=== PATIENT | female | born 1995 ===

== ENCOUNTER 2018-08-06 14:10 | Emergency (ER) | payer OTHER ==
[2018-08-06 15:15] VITALS: BP 105/67
--- NOTE | 2018-08-06 15:24 | UC ---
General HPI - HPI Summary HPI Summary: Patient presents to have the rabies vaccine series. Patient starting a new job ad needs rabies vaccine series, Patient's never had a problem with vaccines before. Patient never had rabies vaccine exposure. Patient is not ill. Patient has no food or medicatoin allergies. Patient healthy, no medical history and not currently sick. No Medications reviewed - History of Current Complaint Chief Complaint: UCGeneralIllness Stated Complaint: RABIES Time Seen by Provider: 08/06/18 15:19 Hx Last Menstrual Period: 07/09/2018 Pain Intensity: 0 - Allergy/Home Medications Allergies/Adverse Reactions: Allergies Allergy/AdvReac Type Severity Reaction Status Date / Time No Known Allergies Allergy Verified 08/06/18 15:16 PMH/Surg Hx/FS Hx/Imm Hx Previously Healthy: Yes - Surgical History Surgical History: None - Family History Known Family History: Positive: Non-Contributory - Social History Occupation: Student Lives: Dormitory/Roommates Alcohol Use: Occasionally Substance Use Type: None Smoking Status (MU): Never Smoked Tobacco Review of Systems All Other Systems Reviewed And Are Negative: Yes Constitutional: Positive: Negative Physical Exam - Summary Physical Exam Summary: Vital Signs Reviewed: Yes A+Ox3, no distress Eyes: Conjunctiva Clear, CARLOS. EOM intact and full ENT: Hearing grossly normal TM x 2 clear, mmoist, uvula midline, no exudate, no erythema Neck: Positive: Supple Respiratory: Positive: No respiratory distress, No accessory muscle use + CTA throughout no w/r Cardiovascular: RRR nl s1, s2 no m/r CBT <2 sec abd soft + BS nt/nd no guarding, no distension Musculoskeletal Exam: BENITEZ x 4 without difficulty Strength Intact, ROM Intact Neurological: Positive: Alert, + sensation throughout Psychological: Positive: Normal Response To Family Skin: Positive: no rash, no ecchymosis Triage Information Reviewed: Yes Vital Signs: Initial Vital Signs Temp 98.6 F 08/06/18 15:10 Pulse 68 08/06/18 15:10 Resp 16 08/06/18 15:10 BP 105/67 08/06/18 15:10 Pulse Ox 99 08/06/18 15:10 Course/Dx - Course Course Of Treatment: Pt starting job next month -needs rabies vaccine series No h/o allergic reactions ,no , not currently sick Will start series tonight advised motrin/apap as needed for discomfort at site - Diagnoses Provider Diagnosis: Rabies, need for prophylactic vaccination against Discharge - Sign-Out/Discharge Documenting (check all that apply): Patient Departure All imaging exams completed and their final reports reviewed: No Studies - Discharge Plan Condition: Stable Disposition: HOME Patient Education Materials: Rabies Vaccine (ED) Referrals: No Primary Care Phys,NOPCP [Primary Care Provider] - Additional Instructions: Preexposure vaccination: A total of 3 doses, 1 mL each, on days 0, 7, and 21 or 28. Today 08/06/18 = Day #0 Day #7 = 08/13/18 Day # 21 = 08/27/18 OR Day #8 = 09/03/18 Anticipate increased discomfort in the area of the vaccine over the next 2-3 days. This is normal. Okay to take ibuprofen (Motrin, Advil) or Tylenol as needed for discomfort If you have any concerns for a reaction, trouble breathing, swelling, hives or any other concerns it is recommended you go to the emergency department for further evaluation and treatment - Billing Disposition and Condition Condition: STABLE Disposition: Home
[2018-08-06] MEDS ORDERED: Rabies VIRUS VACCINE (Imovax)* 2.5 UNIT/ML 1 ML IM ONE (15:30)
== END 2018-08-06 15:55 | disposition home or self-care (01) ==
LOC: UCEAST 14:10
DX: Z23 Encounter for immunization (principal)
CPT/HCPCS: 90471; 99201; G0463

== ENCOUNTER 2018-08-13 13:39 | Emergency (ER) | payer OTHER ==
[2018-08-13] MEDS ORDERED: Rabies VIRUS VACCINE (Imovax)* 2.5 UNIT/ML 1 ML IM ONE (13:47)
[2018-08-13 13:50] VITALS: BP 107/73
--- NOTE | 2018-08-26 18:15 | UC ---
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 She has had no exposure. - History of Current Complaint Chief Complaint: UCGeneralIllness Stated Complaint: RABIES SHOT Time Seen by Provider: 08/13/18 13:43 Hx Obtained From: Patient Hx Last Menstrual Period: 07/09/2018 Onset/Duration: Other - No complaints Current Severity: None Pain Intensity: 0 - Allergy/Home Medications Allergies/Adverse Reactions: Allergies Allergy/AdvReac Type Severity Reaction Status Date / Time No Known Allergies Allergy Verified 08/20/18 13:02 Home Medications: Home Medications Isotretinoin [Absorica] 40 mg PO DAILY WITH MEAL 08/13/18 [History Confirmed ] PMH/Surg Hx/FS Hx/Imm Hx Previously Healthy: Yes - Surgical History Surgical History: None - Family History Known Family History: Positive: Non-Contributory - Social History Occupation: Employed Full-time Alcohol Use: Occasionally Substance Use Type: None Smoking Status (MU): Never Smoked Tobacco Review of Systems All Other Systems Reviewed And Are Negative: Yes Constitutional: Positive: Negative - No complaints, patient is here for her second rabies immunization series as a 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 Is Patient Immunocompromised?: No Physical Exam Triage Information Reviewed: Yes Appearance: Well-Appearing, No Pain Distress, Well-Nourished Vital Signs: Initial Vital Signs Temp 99.1 F 08/13/18 13:46 Pulse 78 08/13/18 13:46 Resp 18 08/13/18 13:46 BP 107/73 08/13/18 13:46 Pulse Ox 100 08/13/18 13:46 Vital Signs Reviewed: Yes Musculoskeletal Exam: Normal Neurological Exam: Normal Psychological Exam: Normal Skin Exam: Normal Course/Dx - Course Course Of Treatment: Patient received her second rabies immunization is result of being employed at place that works with animals. She has had no known exposure to an animal with rabies. - Diagnoses Provider Diagnosis: Need for immunization against rabies Discharge - Sign-Out/Discharge Documenting (check all that apply): Patient Departure All imaging exams completed and their final reports reviewed: No Studies - Discharge Plan Condition: Good Disposition: HOME Patient Education Materials: Rabies Vaccine (ED) Referrals: [facility] [Outside] No Primary Care Phys,NOPCP [Primary Care Provider] - Additional Instructions: Return in one week for your third rabies immunization. - Billing Disposition and Condition Condition: GOOD Disposition: Home
== END 2018-08-13 14:20 | disposition home or self-care (01) ==
LOC: UCEAST 13:39
DX: Z23 Encounter for immunization (principal)
CPT/HCPCS: 90471; 99211; G0463

== ENCOUNTER 2018-08-20 12:33 | Emergency (ER) | payer OTHER ==
[2018-08-20 13:02] VITALS: BP 93/57
[2018-08-20] MEDS ORDERED: Rabies VIRUS VACCINE (Imovax)* 2.5 UNIT/ML 1 ML IM ONE (14:05)
--- NOTE | 2018-08-20 14:07 | ED ---
Medical Screening - HPI Summary HPI Summary: 23-year-old female presents for final rabies vaccine. She has had the previous 2 vaccines here. She is here for her final. 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 Has no medical conditions. No previous reactions to the previous vaccines. - History of Current Complaint Chief Complaint: UCGeneralIllness Stated Complaint: RABIES Time Seen by Provider: 08/20/18 14:02 PMH/Surg Hx/FS Hx/Imm Hx Endocrine/Hematology History: Denies: Hx Diabetes Cardiovascular History: Denies: Hx Hypertension Respiratory History: Denies: Hx Asthma, Hx Chronic Obstructive Pulmonary Disease (COPD) Infectious Disease History: No Infectious Disease History: Reports: Traveled Outside the [place] in Last 30 Days - Family History Known Family History: Positive: Non-Contributory - Social History Alcohol Use: Occasionally Substance Use Type: Reports: None Smoking Status (MU): Never Smoked Tobacco Review of Systems Negative: Fever Negative: Chest Pain Negative: Shortness Of Breath Positive: Other - rabies vaccine needed All Other Systems Reviewed And Are Negative: Yes Physical Exam Triage Information Reviewed: Yes Vital Signs On Initial Exam: Initial Vitals Temp Pulse Resp BP Pulse Ox 98 F 63 16 93/57 100 08/20/18 13:00 08/20/18 13:00 08/20/18 13:00 08/20/18 13:00 08/20/18 13:00 Vital Signs Reviewed: Yes Appearance: Positive: Well-Appearing Skin: Positive: Warm, Dry Head/Face: Positive: Normal Head/Face Inspection Eyes: Positive: Normal, Conjunctiva Clear ENT: Positive: Pharynx normal Respiratory/Lung Sounds: Positive: Clear to Auscultation, Breath Sounds Present Cardiovascular: Positive: Normal, RRR Musculoskeletal: Positive: Normal Neurological: Positive: Normal Psychiatric: Positive: Normal Diagnostics - Vital Signs Vital Signs Temp Pulse Resp BP Pulse Ox 08/20/18 13:00 98 F 63 16 93/57 100 - Laboratory Lab Statement: Any lab studies that have been ordered have been reviewed, and results considered in the medical decision making process. Course/Dx - Course Course Of Treatment: 23-year-old female presents for final rabies vaccine. She has had the previous 2 vaccines here. She is here for her final. 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 Has no medical conditions. No previous reactions to the previous vaccines. On exam has normal physical exam. Gave finals rabies vaccine. warned if develop any symptoms of reaction to return. Patient understands and agrees the plan. - Diagnoses Provider Diagnoses: Encounter for administration of vaccine Discharge - Sign-Out/Discharge Documenting (check all that apply): Patient Departure All imaging exams completed and their final reports reviewed: No Studies - Discharge Plan Condition: Good Disposition: HOME Patient Education Materials: Rabies Vaccine (By injection) Referrals: No Primary Care Phys,NOPCP [Primary Care Provider] - Additional Instructions: you have been given a rabies vaccine on: 08/06, 08/13, 08/20 - Billing Disposition and Condition Condition: GOOD Disposition: Home
== END 2018-08-20 14:17 | disposition home or self-care (01) ==
LOC: UCEAST 12:33
DX: Z23 Encounter for immunization (principal)
CPT/HCPCS: 90471; 99211; G0463